=== PATIENT | female | born 1940 | race Caucasian/White ===

== ENCOUNTER 2016-11-11 22:59 | Observation (INO) | payer OTHER ==
[~2016-11-11] VITALS: Ht 167.6 cm; Wt 77.7 kg
[~2016-11-11 22:59] MED LIST: ACTONEL5 MG PO; ALEVE220 M2 PO; ATHENOL325 MG PO; BACTRIM,SEPT1 TABLET PO; CALTRATE 6001 TABLET PO; CRESTOR20 MG PO; CRESTOR5 MG PO; DIVALPROEX SOD500 MG PO; DULCOLAX5 MG PO; Dulcolax PO; EYE DROP15 ML BOTH EYES; FOLIC ACID1 MG PO; LANSOPRAZOLE30 MG PO; LEVAQUIN500 MG PO; LORAZEPAM0.5 MG PO; Levaquin PO; MEMANTINE HCL10 MG PO; MEMANTINE HCL5 MG PO; MOTRIN600 MG PO; OXYBUTYNIN CHLO15 MG PO; PERCOCET 5/31 TABLET PO; PriLOSEC OTC PO; Thiamine,Vitamin B1 PO; Ultram PO; Zocor PO
[2016-11-12 00:29] LABS: BASOPHIL COUNT 0.1 K/uL (0-0.1); EOSINOPHIL COUNT 0.2 K/uL (0-0.3); HEMATOCRIT 40.3 % (36.0-46.0); IMMATURE GRANULOCYTE (%) 0.3 % (0.0-0.7); INSTRUMENT ABS NEUTROPHIL CT 3.1 K/uL; MCH 29.7 PG (29.0-34.0); MCHC 32.3 G/DL (30.0-36.0); MCV 92.2 FL (83-99); MEAN PLAT.VOLUME 9.8 uM^3 (9.5-12.4); MONOCYTE (%) 6.9 % (3-12); MONOCYTE COUNT 0.4 K/uL (0-0.8); NEUTROPHIL COUNT 3.1 K/uL (1.8-6.4); PLATELET COUNT 145 K/uL (156-360); RBC DIS.WIDTH-CV 14.2 % (11.8-14.6); RBC DIS.WIDTH-SD 48.1 % (39-53); RED BLOOD COUNT 4.37 M/uL (3.80-5.20); WHITE BLOOD COUNT 5.8 K/uL (4.1-10.2)
[2016-11-12 00:42] LABS: CHLORIDE 103 mEq/L (99-109); SODIUM 138 mEq/L (136-147)
[2016-11-12 00:44] LABS: GLUCOSE 140 mg/dL (70-99)
[2016-11-12 00:45] LABS: ANION GAP 10 MEQ/L (2-14)
[2016-11-12 00:46] LABS: TOTAL BILIRUBIN 0.2 mg/dL (0.0-1.0)
[2016-11-12 00:48] LABS: ALKALINE PHOSPHATASE 62 IU/L (3-129); GFR ESTIMATE (CALCULATED) > 59 mL/min/
[2016-11-12 00:49] LABS: UREA NITROGEN (BUN) 19 mg/dL (9-23)
[2016-11-12 00:50] LABS: TROP-I INTERPRETATION NEGATIVE; TROPONIN-I < 0.01 ng/mL (0.0-0.30)
[2016-11-12 00:51] LABS: CREATINE KINASE 96 IU/L (1-294); TOTAL CK 96 IU/L (1-294)
[2016-11-12 01:01] LABS: CK-MB 1.9 ng/mL (0.0-4.9)
[2016-11-12 03:42] LABS: SERUM ETHYL ALCOHOL < 10 mg/dL
[2016-11-12 06:49] VITALS: BP 135/60
[2016-11-12 07:40] VITALS: BP 151/69
[2016-11-12 11:45] LABS: POINT-OF-CARE METER ID UU14149397
[2016-11-12 12:10] VITALS: BP 127/60
[2016-11-12 12:22] LABS: Estimated Average Glucose 126 mg/dL (70-123)
[2016-11-12 15:20] VITALS: BP 133/58
[2016-11-12 17:18] LABS: ADD MIUA? NO; BILIRUBIN NEGATIVE; BLOOD NEGATIVE; COLOR YELLOW ((YELLOW)); GLUCOSE (STRIP) NEGATIVE; KETONES NEGATIVE; LEUKOCYTES NEGATIVE; NITRITE NEGATIVE; PROTEIN (STRIP) NEGATIVE; SPECIFIC GRAVITY 1.005 (1.000-1.030); UCUL ADDED? NO; UROBILINOGEN 0.2 MG/DL (0.2-1.0)
[2016-11-12 19:59] VITALS: BP 118/56
[2016-11-12 23:30] VITALS: BP 124/77
[2016-11-13 05:00] VITALS: BP 144/72
[2016-11-13 08:27] VITALS: BP 11/69; BP 117/69
[2016-11-13] MEDS ORDERED: DITROPAN5 MG PO (11:46)
[2016-11-13] MEDS ORDERED: THERAGRAN1 TABLET PO (11:47)
[2016-11-13] MEDS ORDERED: Thiamine,Vitamin B1 PO (11:47)
[2016-11-13] MEDS ORDERED: CHLORDIAZEPOXID25 MG PO (11:47)
[2016-11-13] MEDS ORDERED: DIVALPROEX SOD500 MG PO (11:47)
[2016-11-13] MEDS ORDERED: FOLIC ACID1 MG PO (11:47)
[2016-11-13 12:24] VITALS: BP 114/59
== END 2016-11-13 12:55 | disposition home or self-care (01) ==
LOC: EME 22:59 → 3EAST 11-12 03:16 → EDOF 11-12 03:16 → 3EAST 11-12 04:30
PROVIDERS: Emergency Medicine; Hospitalist
DX: R56.9 Unspecified convulsions (principal); Z91.14 Patient's other noncompliance with medication regimen; F10.27 Alcohol dependence with alcohol-induced persisting dementia; E11.65 Type 2 diabetes mellitus with hyperglycemia; I10 Essential (primary) hypertension; E78.5 Hyperlipidemia, unspecified; K21.9 Gastro-esophageal reflux disease without esophagitis; F03.90 Unspecified dementia, unspecified severity, without behavioral disturbance, psychotic disturbance, mood disturbance, and anxiety; M19.90 Unspecified osteoarthritis, unspecified site; M81.0 Age-related osteoporosis without current pathological fracture; N39.3 Stress incontinence (female) (male)
CPT/HCPCS: 70450; 80053; 80164; 81003; 82550; 82553; 82607; 82746; 82948; 83036; 84484; 85025; 93005; 95819; 99281; 99285; G0378; G0480; G8978 GP CJ; G8979 GP CI; G8987 GO CJ; G8988 CI; J1644; J1815; J2060; J3411; J7030

== ENCOUNTER 2017-02-24 14:14 | Emergency (ER) | payer OTHER ==
[~2017-02-24] VITALS: Ht 167.6 cm; Wt 76.1 kg
[~2017-02-24 14:14] MED LIST changes: +CHLORDIAZEPOXID25 MG PO; +DITROPAN5 MG PO; +THERAGRAN1 TABLET PO
[2017-02-24 16:10] LABS: BASOPHIL COUNT 0.1 K/uL (0-0.1); EOSINOPHIL (%) 4.1 % (0-5); EOSINOPHIL COUNT 0.3 K/uL (0-0.3); IMMATURE GRANULOCYTE (%) 0.3 % (0.0-0.7); LYMPHOCYTE COUNT 2.4 K/uL (1.0-2.8); MCHC 32.2 G/DL (30.0-36.0); MCV 90.2 FL (83-99); MEAN PLAT.VOLUME 10.6 uM^3 (9.5-12.4); MONOCYTE (%) 6.7 % (3-12); MONOCYTE COUNT 0.4 K/uL (0-0.8); NEUTROPHIL (%) 49.3 % (45-76); PLATELET COUNT 192 K/uL (156-360); RBC DIS.WIDTH-CV 14.4 % (11.8-14.6); RBC DIS.WIDTH-SD 47.8 % (39-53); WHITE BLOOD COUNT 6.1 K/uL (4.1-10.2)
[2017-02-24 16:26] LABS: ALKALINE PHOSPHATASE 48 IU/L (3-129); ANION GAP 9 MEQ/L (2-14); CHLORIDE 104 MEQ/L (99-109); GFR ESTIMATE (CALCULATED) > 59 mL/min/; GLUCOSE 81 mg/dL (70-99); POTASSIUM 4.4 MEQ/L (3.7-5.4); SAMPLE HEMOLYSIS CHECK 0; SAMPLE ICTERIC CHECK 0; SAMPLE LIPEMIA CHECK 0; SODIUM 140 MEQ/L (136-147); TOTAL BILIRUBIN 0.3 MG/DL (0.0-1.0); UREA NITROGEN (BUN) 16 mg/dL (9-23)
[2017-02-24 19:45] VITALS: BP 138/75
== END 2017-02-24 19:48 | disposition home or self-care (01) ==
LOC: EME 14:14
PROVIDERS: Emergency Medicine
DX: R56.9 Unspecified convulsions (principal); G35 Multiple sclerosis; K21.9 Gastro-esophageal reflux disease without esophagitis; E78.5 Hyperlipidemia, unspecified; Z87.891 Personal history of nicotine dependence
CPT/HCPCS: 70450; 80053; 80164; 85025; 93005; 99281; 99285; J2060

== ENCOUNTER 2017-04-13 20:59 | Inpatient (IN) | payer OTHER ==
[~2017-04-13] VITALS: Ht 167.6 cm; Wt 78.3 kg
[2017-04-13 21:23] LABS: HEMATOCRIT 38.7 % (36.0-46.0); MCH 29.8 PG (29.0-34.0); MCHC 32.3 G/DL (30.0-36.0); MCV 92.1 FL (83-99); MEAN PLAT.VOLUME 9.9 uM^3 (9.5-12.4); PLATELET COUNT 247 K/uL (156-360); RBC DIS.WIDTH-SD 50.5 % (39-53); WHITE BLOOD COUNT 7.6 K/uL (4.1-10.2)
[2017-04-13 21:40] LABS: CHLORIDE 104 mEq/L (99-109); POTASSIUM 4.2 mEq/L (3.7-5.4); SODIUM 138 mEq/L (136-147)
[2017-04-13 21:42] LABS: GLUCOSE 101 mg/dL (70-99)
[2017-04-13 21:43] LABS: ANION GAP 6 MEQ/L (2-14)
[2017-04-13 21:44] LABS: TOTAL BILIRUBIN 0.2 mg/dL (0.0-1.0)
[2017-04-13 21:46] LABS: ALKALINE PHOSPHATASE 65 IU/L (3-129); GFR ESTIMATE (CALCULATED) > 59 mL/min/
[2017-04-13 21:47] LABS: UREA NITROGEN (BUN) 21 mg/dL (9-23)
[2017-04-14 02:14] LABS: ADD MIUA? YES; BILIRUBIN NEGATIVE; BLOOD SMALL; COLOR YELLOW ((YELLOW)); GLUCOSE (STRIP) NEGATIVE; KETONES NEGATIVE; LEUKOCYTES NEGATIVE; NITRITE POSITIVE; PROTEIN (STRIP) NEGATIVE; UROBILINOGEN 0.2 MG/DL (0.2-1.0)
[2017-04-14 02:22] LABS: BACTERIA 3+ /HPF; EPITHELIAL CELLS RARE /HPF; MUCUS TRACE /LPF; RED BLOOD CELLS 0-5 /HPF (0-5); UCUL ADDED? YES; WHITE BLOOD CELLS 0-5 /HPF (0-5)
[2017-04-14 04:08] VITALS: BP 139/63
[2017-04-14] MEDS ORDERED: MEMANTINE HCL10 MG PO (06:44)
[2017-04-14] MEDS ORDERED: OMEPRAZOLE40 M1 PO (06:47)
[2017-04-14] MEDS ORDERED: B-1100 MG PO (06:51)
[2017-04-14] MEDS ORDERED: DIVALPROEX SOD500 M1 PO (06:51)
[2017-04-14 07:37] VITALS: BP 146/65
[2017-04-14 16:33] VITALS: BP 139/70
[2017-04-15 00:20] VITALS: BP 135/65
[2017-04-15 06:21] LABS: ALKALINE PHOSPHATASE 56 IU/L (3-129); ANION GAP 7 MEQ/L (2-14); CHLORIDE 105 MEQ/L (99-109); GFR ESTIMATE (CALCULATED) > 59 mL/min/; GLUCOSE 101 mg/dL (70-99); POTASSIUM 4.6 MEQ/L (3.7-5.4); SAMPLE HEMOLYSIS CHECK 0; SAMPLE ICTERIC CHECK 0; SAMPLE LIPEMIA CHECK 0; SODIUM 140 MEQ/L (136-147); TOTAL BILIRUBIN 0.5 MG/DL (0.0-1.0); UREA NITROGEN (BUN) 18 mg/dL (9-23)
[2017-04-15 07:40] VITALS: BP 114/62
[2017-04-15 15:16] VITALS: BP 114/60
[2017-04-15] MEDS ORDERED: DIVALPROEX SOD500 MG PO (16:33)
[2017-04-15] MEDS ORDERED: NAMENDA10 MG PO (16:34)
[2017-04-15] MEDS ORDERED: BACTRIM,SEPT1 TABLET PO (16:40)
[2017-04-15] MEDS ORDERED: CRESTOR5 MG PO (16:41)
[2017-04-15] MEDS ORDERED: DITROPAN XL15 MG PO (16:53)
== END 2017-04-15 18:41 | disposition home or self-care (01) | DRG 101 ==
LOC: EME 20:59 → EDOF 04-14 02:10 → 5EAST 04-14 02:10 → ENRESERV 04-14 02:25 → 5EAST 04-14 03:30
PROVIDERS: Family Medicine
DX: G40.801 Other epilepsy, not intractable, with status epilepticus (principal); N39.0 Urinary tract infection, site not specified; F02.80 Dementia in other diseases classified elsewhere, unspecified severity, without behavioral disturbance, psychotic disturbance, mood disturbance, and anxiety; N39.41 Urge incontinence; F10.20 Alcohol dependence, uncomplicated; E11.65 Type 2 diabetes mellitus with hyperglycemia; G31.1 Senile degeneration of brain, not elsewhere classified; M81.0 Age-related osteoporosis without current pathological fracture; B96.20 Unspecified Escherichia coli [E. coli] as the cause of diseases classified elsewhere; R33.9 Retention of urine, unspecified; G35 Multiple sclerosis; F17.210 Nicotine dependence, cigarettes, uncomplicated; E78.1 Pure hyperglyceridemia; K21.9 Gastro-esophageal reflux disease without esophagitis; Z91.14 Patient's other noncompliance with medication regimen; Z91.19 Patient's noncompliance with other medical treatment and regimen; Z91.018 Allergy to other foods; Y90.9 Presence of alcohol in blood, level not specified
CPT/HCPCS: 70450; 80053; 80164; 81003; 85027; 87077; 87086; 87186; 99281; 99285; J0696; J1953; J2060; J7050